=== PATIENT | female | born 1950 | race Caucasian/White ===

== ENCOUNTER 2024-04-29 18:05 | Observation (INO) ==
[2024-04-29 18:20] VITALS: BMI 17.6
--- NOTE | 2024-04-29 18:43 | EKG ---
Test Reason : chest pain Blood Pressure : */* mmHG Vent. Rate : 89 BPM Atrial Rate : * BPM P-R Int : * ms QRS Dur : 110 ms QT Int : 400 ms P-R-T Axes : * 20 103 degrees QTc Int : 486 ms Accelerated Junctional rhythm Anterolateral infarct , age undetermined Abnormal ECG No previous ECGs available Confirmed by Cristhian Arroyo MD ([id number]) on 04/30/2024 7:55:34 AM Referred By: Confirmed By: Cristhian Arroyo MD
--- NOTE | 2024-04-29 18:43 | DR.CP ---
HPI <Beto Breezy - Last Filed: 05/04/24 08:32> Time Seen Time Seen by Provider: 04/29/24 18:41 PCP Primary Care Physician: Luke Wells Chief Complaint Doctor Comments: 74-year-old female presents for evaluation. Awoke yesterday AM, developed chest pain shortly thereafter. Pain located around the left breast region. Has been fairly constant since yesterday. Pain is sharp, does not radiate. Slightly worse with breathing. Nothing makes it better. 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 Denies fever or chills. No nausea, vomiting, diarrhea. No bladder issues. No swelling of her legs, no pain of her legs, no history of DVT. Chief Complaint:: Pain behind left breast that started yesterday at approximately 0900. took tylenol, went to see Sil ISABEL today then she decided to come to E.R. to make sure is not heart related. Self Treatment fo Chief Complaint: took tylenol Reviewed Nurses Notes Review: Yes Source History Provided: Patient Mode of Arrival Mode of Arrival: Ambulatory Timing Onset of Chief Complaint: 04/28/24 PMH <Beto Grotz - Last Filed: 05/04/24 08:32> PMH Past Medical History: Yes Past Medical History: Arthritis, COPD, Headaches and Sleep Apnea Past Medical History Comment: Narcardia, Past Surgical History: Yes Surgical History: Cholecystectomy Past Surgical History Comment: Right breast cyst removed. Family History History of Family Medical Conditions: No Family Medical History: Heart Failure Social History Does patient currently use any type of tobacco product: No Have you used tobacco products in the last 12 months: No Type of Tobacco Use: None Does any household member use tobacco: No Alcohol Use: None Do you use any recreational Drugs:: No Lives With: Alone Lives Where: Home Infectious screening In the last 2 months have you had wt loss of >10#?: NO Have you had fever, night sweats or hemotysis?: No Have you traveled outside the country in the last 6 months?: No Isolation: Standard ROS <Beto Nathancharles - Last Filed: 05/04/24 08:32> Review of Systems Constitutional: No Symptoms Reported Eyes: No Symptoms Reported ENTM: No Symptoms Reported Respiratoy: No Symptoms Reported Cardiovascular: See HPI Gastrointestinal/Abdominal: No Symptoms Reported Genitourinary: No Symptoms Reported Neurological: No Symptoms Reported Musculoskeletal: No Symptoms Reported Integumentary: No Symptoms Reported All Other Systems: Reviewed and Negative <Shannan RichomndanthonyAlireza - Last Filed: 04/30/24 03:44> Review of Systems Hematologic/Lymphatic: No Symptoms Reported Endocrine: No Symptoms Reported Psychiatric: No Symptoms Reported PE <Beto Tijerina - Last Filed: 05/04/24 08:32> Vitals Vitals: Vital Signs Pulse Rate 80 Pulse Rate 77 Pulse Rate 79 Pulse Rate 82 Pulse Rate 83 Pulse Rate 78 Pulse Rate 80 Pulse Rate 84 Pulse Rate 84 Pulse Rate 82 Pulse Rate 79 Pulse Rate 79 Pulse Rate 82 Pulse Rate 82 Pulse Rate 82 Pulse Rate 83 Pulse Rate 83 Pulse Rate 84 Pulse Rate 84 Pulse Rate 81 Pulse Rate 91 Pulse Rate 84 Pulse Rate 83 Pulse Rate 82 Pulse Rate 83 Pulse Rate 82 Pulse Rate 80 Pulse Rate 83 Pulse Rate 81 Pulse Rate 84 Pulse Rate 86 Pulse Rate 85 Pulse Rate 82 Pulse Rate 81 Pulse Rate 80 Pulse Rate 82 Pulse Rate 85 Pulse Rate 83 Pulse Rate 86 Pulse Rate 88 Pulse Rate 85 Pulse Rate 84 Pulse Rate 87 Pulse Rate 83 Pulse Rate 106 Pulse Rate 107 Pulse Rate 116 Pulse Rate 118 Pulse Rate 100 Pulse Rate 93 Pulse Rate 90 Pulse Rate 90 Pulse Rate 94 Pulse Rate 91 Pulse Rate 95 Pulse Rate 100 Pulse Rate 90 Pulse Rate 90 Respiratory Rate 29 Respiratory Rate 20 Respiratory Rate 22 Respiratory Rate 35 Respiratory Rate 26 Respiratory Rate 30 Respiratory Rate 29 Respiratory Rate 26 Respiratory Rate 29 Respiratory Rate 21 Respiratory Rate 25 Respiratory Rate 25 Blood Pressure 174/72 Blood Pressure 166/67 Blood Pressure 159/67 Blood Pressure 160/74 Blood Pressure 189/73 Blood Pressure 160/73 Blood Pressure 166/70 Blood Pressure 166/70 Blood Pressure 164/72 Blood Pressure 164/72 Blood Pressure 164/72 Blood Pressure 161/72 Blood Pressure 161/72 Blood Pressure 156/71 Blood Pressure 157/70 Blood Pressure 161/59 Blood Pressure 162/72 Blood Pressure 169/73 Blood Pressure 172/74 Blood Pressure 173/74 Blood Pressure 156/70 Blood Pressure 146/65 Blood Pressure 166/60 Blood Pressure 146/68 Blood Pressure 157/79 Blood Pressure 181/74 Blood Pressure 165/70 Blood Pressure 156/68 Blood Pressure 178/76 Blood Pressure 164/73 Blood Pressure 159/68 Blood Pressure 155/68 Blood Pressure 149/65 Blood Pressure 152/69 Blood Pressure 158/70 Blood Pressure 133/61 Blood Pressure 154/67 Blood Pressure 172/74 Blood Pressure 155/68 Blood Pressure 171/74 Blood Pressure 152/71 Blood Pressure 201/84 Blood Pressure 180/78 Blood Pressure 197/86 Blood Pressure 185/72 Blood Pressure 147/68 Blood Pressure 147/68 Blood Pressure 180/74 Blood Pressure 162/70 Blood Pressure 178/64 Blood Pressure 168/70 Blood Pressure 160/65 Blood Pressure 160/65 O2 Sat by Pulse Oximetry 98 O2 Sat by Pulse Oximetry 98 O2 Sat by Pulse Oximetry 96 O2 Sat by Pulse Oximetry 97 O2 Sat by Pulse Oximetry 97 O2 Sat by Pulse Oximetry 97 O2 Sat by Pulse Oximetry 97 O2 Sat by Pulse Oximetry 96 O2 Sat by Pulse Oximetry 97 O2 Sat by Pulse Oximetry 98 O2 Sat by Pulse Oximetry 98 O2 Sat by Pulse Oximetry 97 O2 Sat by Pulse Oximetry 98 O2 Sat by Pulse Oximetry 97 O2 Sat by Pulse Oximetry 97 O2 Sat by Pulse Oximetry 97 O2 Sat by Pulse Oximetry 97 O2 Sat by Pulse Oximetry 97 O2 Sat by Pulse Oximetry 97 O2 Sat by Pulse Oximetry 95 O2 Sat by Pulse Oximetry 98 O2 Sat by Pulse Oximetry 97 O2 Sat by Pulse Oximetry 97 O2 Sat by Pulse Oximetry 97 O2 Sat by Pulse Oximetry 98 O2 Sat by Pulse Oximetry 98 O2 Sat by Pulse Oximetry 97 O2 Sat by Pulse Oximetry 98 O2 Sat by Pulse Oximetry 98 O2 Sat by Pulse Oximetry 98 O2 Sat by Pulse Oximetry 98 O2 Sat by Pulse Oximetry 98 O2 Sat by Pulse Oximetry 98 O2 Sat by Pulse Oximetry 98 O2 Sat by Pulse Oximetry 98 O2 Sat by Pulse Oximetry 97 O2 Sat by Pulse Oximetry 98 O2 Sat by Pulse Oximetry 97 O2 Sat by Pulse Oximetry 98 O2 Sat by Pulse Oximetry 97 O2 Sat by Pulse Oximetry 97 O2 Sat by Pulse Oximetry 98 O2 Sat by Pulse Oximetry 98 O2 Sat by Pulse Oximetry 99 O2 Sat by Pulse Oximetry 98 O2 Sat by Pulse Oximetry 99 O2 Sat by Pulse Oximetry 99 O2 Sat by Pulse Oximetry 97 O2 Sat by Pulse Oximetry 99 O2 Sat by Pulse Oximetry 99 O2 Sat by Pulse Oximetry 96 O2 Sat by Pulse Oximetry 93 O2 Sat by Pulse Oximetry 95 O2 Sat by Pulse Oximetry 98 O2 Sat by Pulse Oximetry 98 General General Appearance: Alert and In No Apparent Distress Eyes Eye exam: PERRL and EOMI Chest Chest Inspection: Normal Inspection; negative Tenderness Respiratory Respiratory Exam: Normal Lung Sounds Bilat; negative Accessory Muscle Use or Respiratory Distress Cardiovascular Cardiovascular Exam: Regular Rate, Normal Rhythm and Normal Heart Sounds Abdominal Exam Abdominal Exam: Normal Bowel Sounds and Soft; negative Tenderness Extremities Extremities Exam: Normal Inspection and Full ROM; negative Tenderness or Edema Back Back Exam: Normal Inspection; negative (R) CVA Tenderness or (L) CVA Tenderness Neurologic Neurological Exam: Alert, Oriented X3 and CN II-XII Intact; negative Motor Sensory Deficit Skin Skin Exam: Warm and Dry <Shannan BoydKarenAlireza - Last Filed: 04/30/24 03:44> Vitals Vitals: Vital Signs Pulse Rate 80 Pulse Rate 77 Pulse Rate 79 Pulse Rate 82 Pulse Rate 83 Pulse Rate 78 Pulse Rate 80 Pulse Rate 84 Pulse Rate 84 Pulse Rate 82 Pulse Rate 79 Pulse Rate 79 Pulse Rate 82 Pulse Rate 82 Pulse Rate 82 Pulse Rate 83 Pulse Rate 83 Pulse Rate 84 Pulse Rate 84 Pulse Rate 81 Pulse Rate 91 Pulse Rate 84 Pulse Rate 83 Pulse Rate 82 Pulse Rate 83 Pulse Rate 82 Pulse Rate 80 Pulse Rate 83 Pulse Rate 81 Pulse Rate 84 Pulse Rate 86 Pulse Rate 85 Pulse Rate 82 Pulse Rate 81 Pulse Rate 80 Pulse Rate 82 Pulse Rate 85 Pulse Rate 83 Pulse Rate 86 Pulse Rate 88 Pulse Rate 85 Pulse Rate 84 Pulse Rate 87 Pulse Rate 83 Pulse Rate 106 Pulse Rate 107 Pulse Rate 116 Pulse Rate 118 Pulse Rate 100 Pulse Rate 93 Pulse Rate 90 Pulse Rate 90 Pulse Rate 94 Pulse Rate 91 Pulse Rate 95 Pulse Rate 100 Pulse Rate 90 Pulse Rate 90 Respiratory Rate 29 Respiratory Rate 20 Respiratory Rate 22 Respiratory Rate 35 Respiratory Rate 26 Respiratory Rate 30 Respiratory Rate 29 Respiratory Rate 26 Respiratory Rate 29 Respiratory Rate 21 Respiratory Rate 25 Respiratory Rate 25 Blood Pressure 174/72 Blood Pressure 166/67 Blood Pressure 159/67 Blood Pressure 160/74 Blood Pressure 189/73 Blood Pressure 160/73 Blood Pressure 166/70 Blood Pressure 166/70 Blood Pressure 164/72 Blood Pressure 164/72 Blood Pressure 164/72 Blood Pressure 161/72 Blood Pressure 161/72 Blood Pressure 156/71 Blood Pressure 157/70 Blood Pressure 161/59 Blood Pressure 162/72 Blood Pressure 169/73 Blood Pressure 172/74 Blood Pressure 173/74 Blood Pressure 156/70 Blood Pressure 146/65 Blood Pressure 166/60 Blood Pressure 146/68 Blood Pressure 157/79 Blood Pressure 181/74 Blood Pressure 165/70 Blood Pressure 156/68 Blood Pressure 178/76 Blood Pressure 164/73 Blood Pressure 159/68 Blood Pressure 155/68 Blood Pressure 149/65 Blood Pressure 152/69 Blood Pressure 158/70 Blood Pressure 133/61 Blood Pressure 154/67 Blood Pressure 172/74 Blood Pressure 155/68 Blood Pressure 171/74 Blood Pressure 152/71 Blood Pressure 201/84 Blood Pressure 180/78 Blood Pressure 197/86 Blood Pressure 185/72 Blood Pressure 147/68 Blood Pressure 147/68 Blood Pressure 180/74 Blood Pressure 162/70 Blood Pressure 178/64 Blood Pressure 168/70 Blood Pressure 160/65 Blood Pressure 160/65 O2 Sat by Pulse Oximetry 98 O2 Sat by Pulse Oximetry 98 O2 Sat by Pulse Oximetry 96 O2 Sat by Pulse Oximetry 97 O2 Sat by Pulse Oximetry 97 O2 Sat by Pulse Oximetry 97 O2 Sat by Pulse Oximetry 97 O2 Sat by Pulse Oximetry 96 O2 Sat by Pulse Oximetry 97 O2 Sat by Pulse Oximetry 98 O2 Sat by Pulse Oximetry 98 O2 Sat by Pulse Oximetry 97 O2 Sat by Pulse Oximetry 98 O2 Sat by Pulse Oximetry 97 O2 Sat by Pulse Oximetry 97 O2 Sat by Pulse Oximetry 97 O2 Sat by Pulse Oximetry 97 O2 Sat by Pulse Oximetry 97 O2 Sat by Pulse Oximetry 97 O2 Sat by Pulse Oximetry 95 O2 Sat by Pulse Oximetry 98 O2 Sat by Pulse Oximetry 97 O2 Sat by Pulse Oximetry 97 O2 Sat by Pulse Oximetry 97 O2 Sat by Pulse Oximetry 98 O2 Sat by Pulse Oximetry 98 O2 Sat by Pulse Oximetry 97 O2 Sat by Pulse Oximetry 98 O2 Sat by Pulse Oximetry 98 O2 Sat by Pulse Oximetry 98 O2 Sat by Pulse Oximetry 98 O2 Sat by Pulse Oximetry 98 O2 Sat by Pulse Oximetry 98 O2 Sat by Pulse Oximetry 98 O2 Sat by Pulse Oximetry 98 O2 Sat by Pulse Oximetry 97 O2 Sat by Pulse Oximetry 98 O2 Sat by Pulse Oximetry 97 O2 Sat by Pulse Oximetry 98 O2 Sat by Pulse Oximetry 97 O2 Sat by Pulse Oximetry 97 O2 Sat by Pulse Oximetry 98 O2 Sat by Pulse Oximetry 98 O2 Sat by Pulse Oximetry 99 O2 Sat by Pulse Oximetry 98 O2 Sat by Pulse Oximetry 99 O2 Sat by Pulse Oximetry 99 O2 Sat by Pulse Oximetry 97 O2 Sat by Pulse Oximetry 99 O2 Sat by Pulse Oximetry 99 O2 Sat by Pulse Oximetry 96 O2 Sat by Pulse Oximetry 93 O2 Sat by Pulse Oximetry 95 O2 Sat by Pulse Oximetry 98 O2 Sat by Pulse Oximetry 98 <Shannan BoydAlireza - Last Filed: 04/30/24 03:44> Differential Diagnosis Differential Diagnosis: Angina, Aortic Dissection, Cholelithasis (electrolyte disorder), Myocardial Infarction, Pericarditis, Pancreatitis, Pneumonia and Pulmonary Embolus COURSE <Beto Tijerina - Last Filed: 05/04/24 08:32> Treatment Treatment: 74-year-old female with left-sided chest discomfort since yesterday. Currently no distress. Workup initiated. EKG shows normal sinus rhythm at 89 bpm, axis first-degree, nonspecific ST elevation across the precordial leads. CXR - chronic appearing changes. 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 Troponin normal. Does have a markedly elevated D-dimer 2+. Will pursue a CTA of the chest for further evaluation. <Shannan Alvarezix - Last Filed: 04/30/24 03:44> Treatment Treatment: 74-year-old female with left-sided chest discomfort since yesterday. Currently no distress. Workup initiated. EKG shows normal sinus rhythm at 89 bpm, axis first-degree, nonspecific ST elevation across the precordial leads. CXR - chronic appearing changes. 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 Troponin normal. Does have a markedly elevated D-dimer 2.1. Will pursue a CTA of the chest for further evaluation. A review of Patient's labs and tests revealed: cbc 8.0, D-dimer 2.1, Mg 1.8, Cmp stable, U/A neg. Ekg #1 and Ekg #2 no acute ischemic changes/Trop#1 and Trop#2 wnl. Patient was given MgS04 2g Iv. Her CTA chest revealed: Multilobar Pneumonia ( L Lingula and BLL) and RLL nodule that may be a granuloma or neoplastic lesion.Patient was informed of Both findings. After blood cultures were collected Patient was given Rocephin 2 g iv and azithromycin 500mg iv. 02:[address] Iqbal. He has accepted Patient to [facility] for further evaluation ROR <Beto Tijerina - Last Filed: 05/04/24 08:32> Labs Reviewed 05/03/24 04:30 05/03/24 04:30 Laboratory: 04/29/24 22:35 Blood Blood Culture - Preliminary 04/29/24 22:28 Blood Blood Culture - Preliminary WBC 8.0 X10^3/uL (3.6-10.0) 04/29/24 18:40 RBC 3.97 X10^6/uL (3.5-5.4) 04/29/24 18:40 Hgb 12.0 g/dL (12.0-16.0) 04/29/24 18:40 Hct 36.6 % (36.0-47.0) 04/29/24 18:40 MCV 92.2 fL (80.0-100.0) 04/29/24 18:40 MCH 30.2 pg (27.0-34.0) 04/29/24 18:40 MCHC 32.8 g/dL (33.0-35.0) L 04/29/24 18:40 RDW 12.8 % (11.6-16.5) 04/29/24 18:40 Plt Count 146 X10^3/uL (150.0-450.0) L 04/29/24 18:40 MPV 9.3 fL (7.4-11.0) 04/29/24 18:40 Neut % (Auto) 72.0 % (42.0-75.0) 04/29/24 18:40 Lymph % (Auto) 18.0 % (21.0-51.0) L 04/29/24 18:40 [place] % (Auto) 8.9 % (0.0-13.0) 04/29/24 18:40 Eos % (Auto) 0.6 % (0.9-2.9) L 04/29/24 18:40 Baso % (Auto) 0.5 % (0.2-1.0) 04/29/24 18:40 Neut # (Auto) 5.7 x10^3/uL (2.2-4.8) H 04/29/24 18:40 Lymph # (Auto) 1.4 X10^3/uL (1.3-2.9) 04/29/24 18:40 [place] # (Auto) 0.7 x10^3/uL (0.3-0.8) 04/29/24 18:40 Eos # (Auto) 0.0 x10^3/uL (0.0-0.2) 04/29/24 18:40 Baso # (Auto) 0.0 X10^3/uL (0.0-0.1) 04/29/24 18:40 Absolute Nucleated RBC 0.1 /100WBC 04/29/24 18:40 D-Dimer 2.10 ug/ml (0.0-0.57) H 04/29/24 18:40 Sodium 141 mmol/L (136-145) 04/29/24 18:40 Corrected Sodium TNP 04/29/24 18:40 Potassium 3.9 mmol/L (3.5-5.1) 04/29/24 18:40 Chloride 102 mmol/L (98-107) 04/29/24 18:40 Carbon Dioxide 31.0 mmol/L (21-32) 04/29/24 18:40 BUN 16 mg/dL (7-18) 04/29/24 18:40 Creatinine 0.61 mg/dL (0.55-1.02) 04/29/24 18:40 Est GFR (MDRD) Af Amer > 60 (>60) 04/29/24 18:40 Est GFR (MDRD) Non-Af > 60 (>60) 04/29/24 18:40 Glucose 81 mg/dL (65-99) 04/29/24 18:40 Calcium 8.9 mg/dL (8.5-10.1) 04/29/24 18:40 Corrected Calcium TNP 04/29/24 18:40 Magnesium 1.8 mg/dL (2.0-2.9) L 04/29/24 20:50 Total Bilirubin 0.50 mg/dL (0.2-1.0) 04/29/24 18:40 AST 26 Units/L (15-37) 04/29/24 18:40 ALT 20 Units/L (12-78) 04/29/24 18:40 Alkaline Phosphatase 129 Units/L (46-116) H 04/29/24 18:40 Creatine Kinase 77 Units/L (26-192) 04/29/24 20:50 Troponin I High Sens 12.2 ng/L (4.0-60.0) 04/29/24 20:50 Total Protein 8.2 g/dL (6.4-8.2) 04/29/24 18:40 Albumin 3.9 g/dL (3.4-5.0) 04/29/24 18:40 Globulin 4.3 g/dL (2.5-4.5) 04/29/24 18:40 Albumin/Globulin Ratio 0.9 Ratio (1.1-2.1) L 04/29/24 18:40 Lipase 22 Units/L (16-77) 04/29/24 18:40 Specimen Type Clean catch urine 04/29/24 18:30 Urine Color Pale yellow (YELLOW) 04/29/24 18:30 Urine Appearance Clear (CLEAR) 04/29/24 18:30 Urine pH 7.0 (5.0 - 8.0) 04/29/24 18:30 Ur Specific [place] 1.015 (1.000-1.030) 04/29/24 18:30 Urine Protein Negative (NEGATIVE) 04/29/24 18:30 Urine Glucose (UA) Negative (NEGATIVE) 04/29/24 18:30 Urine Ketones Negative (NEGATIVE) 04/29/24 18:30 Urine Blood Negative (NEGATIVE) 04/29/24 18:30 Urine Nitrite Negative (NEGATIVE) 04/29/24 18:30 Urine Bilirubin Negative (NEGATIVE) 04/29/24 18:30 Urine Urobilinogen Normal (NORMAL) 04/29/24 18:30 Ur Leukocyte Esterase Negative (NEGATIVE) 04/29/24 18:30 <Shannan Ferrell - Last Filed: 04/30/24 03:44> Labs Reviewed Laboratory Results Reviewed?: Yes Laboratory: 04/29/24 22:35 Blood Blood Culture - Preliminary 04/29/24 22:28 Blood Blood Culture - Preliminary WBC 8.0 X10^3/uL (3.6-10.0) 04/29/24 18:40 RBC 3.97 X10^6/uL (3.5-5.4) 04/29/24 18:40 Hgb 12.0 g/dL (12.0-16.0) 04/29/24 18:40 Hct 36.6 % (36.0-47.0) 04/29/24 18:40 MCV 92.2 fL (80.0-100.0) 04/29/24 18:40 MCH 30.2 pg (27.0-34.0) 04/29/24 18:40 MCHC 32.8 g/dL (33.0-35.0) L 04/29/24 18:40 RDW 12.8 % (11.6-16.5) 04/29/24 18:40 Plt Count 146 X10^3/uL (150.0-450.0) L 04/29/24 18:40 MPV 9.3 fL (7.4-11.0) 04/29/24 18:40 Neut % (Auto) 72.0 % (42.0-75.0) 04/29/24 18:40 Lymph % (Auto) 18.0 % (21.0-51.0) L 04/29/24 18:40 [place] % (Auto) 8.9 % (0.0-13.0) 04/29/24 18:40 Eos % (Auto) 0.6 % (0.9-2.9) L 04/29/24 18:40 Baso % (Auto) 0.5 % (0.2-1.0) 04/29/24 18:40 Neut # (Auto) 5.7 x10^3/uL (2.2-4.8) H 04/29/24 18:40 Lymph # (Auto) 1.4 X10^3/uL (1.3-2.9) 04/29/24 18:40 [place] # (Auto) 0.7 x10^3/uL (0.3-0.8) 04/29/24 18:40 Eos # (Auto) 0.0 x10^3/uL (0.0-0.2) 04/29/24 18:40 Baso # (Auto) 0.0 X10^3/uL (0.0-0.1) 04/29/24 18:40 Absolute Nucleated RBC 0.1 /100WBC 04/29/24 18:40 D-Dimer 2.10 ug/ml (0.0-0.57) H 04/29/24 18:40 Sodium 141 mmol/L (136-145) 04/29/24 18:40 Corrected Sodium TNP 04/29/24 18:40 Potassium 3.9 mmol/L (3.5-5.1) 04/29/24 18:40 Chloride 102 mmol/L (98-107) 04/29/24 18:40 Carbon Dioxide 31.0 mmol/L (21-32) 04/29/24 18:40 BUN 16 mg/dL (7-18) 04/29/24 18:40 Creatinine 0.61 mg/dL (0.55-1.02) 04/29/24 18:40 Est GFR (MDRD) Af Amer > 60 (>60) 04/29/24 18:40 Est GFR (MDRD) Non-Af > 60 (>60) 04/29/24 18:40 Glucose 81 mg/dL (65-99) 04/29/24 18:40 Calcium 8.9 mg/dL (8.5-10.1) 04/29/24 18:40 Corrected Calcium TNP 04/29/24 18:40 Magnesium 1.8 mg/dL (2.0-2.9) L 04/29/24 20:50 Total Bilirubin 0.50 mg/dL (0.2-1.0) 04/29/24 18:40 AST 26 Units/L (15-37) 04/29/24 18:40 ALT 20 Units/L (12-78) 04/29/24 18:40 Alkaline Phosphatase 129 Units/L (46-116) H 04/29/24 18:40 Creatine Kinase 77 Units/L (26-192) 04/29/24 20:50 Troponin I High Sens 12.2 ng/L (4.0-60.0) 04/29/24 20:50 Total Protein 8.2 g/dL (6.4-8.2) 04/29/24 18:40 Albumin 3.9 g/dL (3.4-5.0) 04/29/24 18:40 Globulin 4.3 g/dL (2.5-4.5) 04/29/24 18:40 Albumin/Globulin Ratio 0.9 Ratio (1.1-2.1) L 04/29/24 18:40 Lipase 22 Units/L (16-77) 04/29/24 18:40 Specimen Type Clean catch urine 04/29/24 18:30 Urine Color Pale yellow (YELLOW) 04/29/24 18:30 Urine Appearance Clear (CLEAR) 04/29/24 18:30 Urine pH 7.0 (5.0 - 8.0) 04/29/24 18:30 Ur Specific [place] 1.015 (1.000-1.030) 04/29/24 18:30 Urine Protein Negative (NEGATIVE) 04/29/24 18:30 Urine Glucose (UA) Negative (NEGATIVE) 04/29/24 18:30 Urine Ketones Negative (NEGATIVE) 04/29/24 18:30 Urine Blood Negative (NEGATIVE) 04/29/24 18:30 Urine Nitrite Negative (NEGATIVE) 04/29/24 18:30 Urine Bilirubin Negative (NEGATIVE) 04/29/24 18:30 Urine Urobilinogen Normal (NORMAL) 04/29/24 18:30 Ur Leukocyte Esterase Negative (NEGATIVE) 04/29/24 18:30 Opioid <Beto Tijerina - Last Filed: 05/04/24 08:32> Opioid Risk Tool Total: 0 Total Score Risk Category: Low Risk Copyright: Wang GALEAS predicting aberrant behaviors <Shannan Ferrell - Last Filed: 04/30/24 03:44> Opioid Risk Tool Total: 0 Total Score Risk Category: Low Risk Discharge Plan Diagnosis Discharge Problem: Pneumonia, Hypomagnesemia Discharge Plan Patient Disposition: 09 ADMITTED INPATIENT Condition: Stable Prescription drug monitoring program results: PDMP reviewed and no concerns identified Orders to Discharge Patient Discharge Orders: Discharge (Routine); Ordered 05/03/24 Ordered By: Stephanie Rangel
[2024-04-29 19:03] LABS: BASOPHILS % (AUTO) 0.5 % (0.2-1.0); EOSINOPHILS % (AUTO) 0.6 % (0.9-2.9); HEMATOCRIT 36.6 % (36.0-47.0); LYMPHOCYTES # (AUTO) 1.4 X10^3/uL (1.3-2.9); MEAN CORPUSCULAR HEMOGLOBIN 30.2 pg (27.0-34.0); MEAN CORPUSCULAR HGB CONC 32.8 g/dL (33.0-35.0); MEAN CORPUSCULAR VOLUME 92.2 fL (80.0-100.0); MEAN PLATELET VOLUME 9.3 fL (7.4-11.0); MONOCYTES # (AUTO) 0.7 x10^3/uL (0.3-0.8); MONOCYTES % (AUTO) 8.9 % (0.0-13.0); NEUTROPHILS # (AUTO) 5.7 x10^3/uL (2.2-4.8); PLATELET COUNT 146 X10^3/uL (150.0-450.0); RED BLOOD COUNT 3.97 X10^6/uL (3.5-5.4); RED CELL DISTRIBUTION WIDTH 12.8 % (11.6-16.5)
[2024-04-29 19:17] LABS: ALANINE AMINOTRANSFERASE 20 Units/L (12-78); ALBUMIN 3.9 g/dL (3.4-5.0); ALKALINE PHOSPHATASE 129 Units/L (46-116); ASPARTATE AMINO TRANSFERASE 26 Units/L (15-37); BLOOD UREA NITROGEN 16 mg/dL (7-18); CALCIUM 8.9 mg/dL (8.5-10.1); CHLORIDE 102 mmol/L (98-107); CREATININE 0.61 mg/dL (0.55-1.02); GLUCOSE 81 mg/dL (65-99); LIPASE 22 Units/L (16-77); POTASSIUM 3.9 mmol/L (3.5-5.1); SODIUM 141 mmol/L (136-145); TOTAL PROTEIN 8.2 g/dL (6.4-8.2); eGFR NON BLACK RACES > 60 (>60)
[2024-04-29] MEDS: APRESOLINE INJ 20 MG VIAL IVP ONE (19:26)
[2024-04-29 20:26] LABS: BILIRUBIN,URINE NEGATIVE (NEGATIVE); BLOOD/HEMOGLOBIN,URINE NEGATIVE (NEGATIVE); GLUCOSE, URINE NEGATIVE (NEGATIVE); KETONES,URINE NEGATIVE (NEGATIVE); LEUKOCYTE ESTERASE ,URINE NEGATIVE (NEGATIVE); NITRITES,URINE NEGATIVE (NEGATIVE); PROTEIN,URINE NEGATIVE (NEGATIVE); UROBILINOGEN,URINE NORMAL (NORMAL)
[2024-04-29 20:28] LABS: APPEARANCE,URINE CLEAR (CLEAR); COLOR,URINE PALE YELLOW (YELLOW)
--- NOTE | 2024-04-29 20:42 | EKG ---
Test Reason : CHEST PAIN Blood Pressure : */* mmHG Vent. Rate : 89 BPM Atrial Rate : 89 BPM P-R Int : 156 ms QRS Dur : 118 ms QT Int : 420 ms P-R-T Axes : 79 30 101 degrees QTc Int : 511 ms Normal sinus rhythm Left atrial enlargement Anterolateral infarct (cited on or before 29-APR-2024) Prolonged QT Abnormal ECG When compared with ECG of 29-APR-2024 18:39, (Unconfirmed) Sinus rhythm has replaced Junctional rhythm T wave inversion less evident in Anterior leads Confirmed by Cristhian Arroyo MD ([id number]) on 04/30/2024 7:54:50 AM Referred By: Confirmed By: Cristhian Arroyo MD
--- NOTE | 2024-04-29 21:03 | CT ---
EXAM: CTA CHEST WITH INTRAVENOUS CONTRAST HISTORY: Pain behind the left breast that started yesterday. TECHNIQUE: Spiral axial CT images are obtained through the chest with the administration of intraveno us contrast. Coronal, sagittal and 3D MIP images are reformatted. DOSIMETRY: Total DLP 88.72 mGycm; CTDI 15.03 mGy COMPARISON: None available. FINDINGS: CARDIOVASCULAR: There is no evidence for pulmonary embolic disease. The heart size and mediastinal va scular structures are within normal limits. There is no significant aortic or coronary atheroscleros is seen. No thoracic aortic aneurysm or dissection is noted. MEDIASTINUM AND YAYA: No mass lesion, lymphadenopathy, emphysema, or abnormal fluid collection is see n. LUNGS: There is evidence for bronchial wall thickening, endobronchial complex fluid opacification, an d peribronchial 3 and blood parenchymal infiltrate seen within the bilateral lower lobes and lingula consistent with acute multilobar bronchopneumonia in the appropriate clinical setting. There is appr oximately 2.4 cm transverse by 3 cm AP subpleural consolidation in the posterior inferior lingula con sistent with consolidative postobstructive atelectasis and/for acute pneumonia in the appropriate cli nical setting. Axial image 101. There is a nonspecific 8.4 mm noncalcified subpleural nodule in the anterior lateral right lower lobe (axial image 107); DDx includes noncalcified granuloma and neoplas tic nodule. There is biapical subpleural parenchymal fibrosis consistent with chronic sequela of nate or inflammatory or granulomatous lung disease. No pleural effusion or pneumothorax is evident. CHEST WALL: There are no chest wall lesions seen. Multilevel DDD is seen throughout the middle to di stal thoracic spine with disc space narrowings and anterior marginal osteophytosis. The visualized b sondra structures are otherwise within normal limits. No axillary lymphadenopathy is noted. UPPER ABDOMEN: Limited views through the upper abdomen demonstrate no gross acute abnormality. The p atient is status post cholecystectomy. There is mild intrahepatic and extrahepatic biliary ductal dil atation, without discernible obstructing stone or pancreatic head mass lesion, suspicious for postcho lecystectomy state. Consider follow-up MRCP or HIDA scan if obstructive biliary disease is clinicall y suspected. IMPRESSION: 1. No evidence for pulmonary embolic disease. 2. No evidence for aortic aneurysm or aortic dissection. 3. Bronchial wall thickening, endobronchial complex fluid opacification, and peribronchial 3 and blo od parenchymal infiltrate seen within the bilateral lower lobes and lingula consistent with acute mul tilobar bronchopneumonia in the appropriate clinical setting. 4. Approximately 2.4 cm transverse by 3 cm AP subpleural consolidation in the posterior inferior zachery gula consistent with consolidative postobstructive atelectasis and/for acute pneumonia in the appropr iate clinical setting. Axial image 101. 5. Biapical subpleural parenchymal fibrosis consistent with chronic sequela of prior inflammatory or granulomatous lung disease. 6. Nonspecific 8.4 mm noncalcified subpleural nodule in the anterior lateral right lower lobe (axial image 107); DDx includes noncalcified granuloma and neoplastic nodule. 7. For low risk patient, recommend follow-up CT in 12 months, and if stable no further follow-up. Fo r high-risk patient, recommend follow-up CT in no more than 6-12 months, and if stable, consider foll ow-up at 18-24 months. THIS IS AN ELECTRONICALLY VERIFIED FINAL REPORT 04/29/2024 9:00 PM - Electronically signed by Leigh Sanabria MD
[2024-04-29] MEDS: NORMODYNE INJ 20 MG VIAL IVP ONE (21:47)
[2024-04-29] MEDS: ROCEPHIN VIAL 2 GRAMS 2 G in NS 100 ML IV 100 ML IV SCH (22:01)
[2024-04-29] MEDS: ZITHROMAX INJ 500 MG VIAL 500 MG in NS 250 ML IV 250 ML IV SCH (22:04)
[2024-04-30] MEDS: MAGNESIUM SULFATE 1 GRAM/100 mL PREMIX 1 G/100 ML BAG IV SCH (00:49)
[2024-04-30] MEDS: ZOFRAN INJ 4 MG VIAL IVP ONE (02:54)
[2024-04-30] MEDS: MORPHINE SULFATE INJ 2 MG INJ IVP ONE (02:55)
[2024-04-30] MEDS ORDERED: CONSULT PHARMACY - POTASSIUM & MAGNESIUM XX SCH (04:28)
[2024-04-30] MEDS: NEURONTIN CAP 300 MG PO SCH (05:56)
[2024-04-30 06:11] LABS: BASOPHILS % (AUTO) 0.4 % (0.2-1.0); EOSINOPHILS % (AUTO) 0.2 % (0.9-2.9); HEMOGLOBIN 11.5 g/dL (12.0-16.0); LYMPHOCYTES # (AUTO) 1.8 X10^3/uL (1.3-2.9); LYMPHOCYTES % (AUTO) 20.7 % (21.0-51.0); MEAN CORPUSCULAR HEMOGLOBIN 30.4 pg (27.0-34.0); MEAN CORPUSCULAR VOLUME 92.1 fL (80.0-100.0); MEAN PLATELET VOLUME 9.4 fL (7.4-11.0); MONOCYTES # (AUTO) 0.9 x10^3/uL (0.3-0.8); MONOCYTES % (AUTO) 10.8 % (0.0-13.0); NEUTROPHILS # (AUTO) 5.9 x10^3/uL (2.2-4.8); NEUTROPHILS % (AUTO) 67.9 % (42.0-75.0); PLATELET COUNT 131 X10^3/uL (150.0-450.0); WHITE BLOOD COUNT 8.7 X10^3/uL (3.6-10.0)
[2024-04-30 06:23] LABS: ALANINE AMINOTRANSFERASE 18 Units/L (12-78); ALBUMIN 3.4 g/dL (3.4-5.0); ALKALINE PHOSPHATASE 108 Units/L (46-116); ASPARTATE AMINO TRANSFERASE 20 Units/L (15-37); BLOOD UREA NITROGEN 12 mg/dL (7-18); CALCIUM 8.5 mg/dL (8.5-10.1); CARBON DIOXIDE 28.8 mmol/L (21-32); CHLORIDE 101 mmol/L (98-107); CREATININE 0.61 mg/dL (0.55-1.02); GLUCOSE 107 mg/dL (65-99); POTASSIUM 3.5 mmol/L (3.5-5.1); SODIUM 140 mmol/L (136-145); TOTAL PROTEIN 7.5 g/dL (6.4-8.2); eGFR NON BLACK RACES > 60 (>60)
--- NOTE | 2024-04-30 06:54 | RAD ---
EXAM:CHEST, 1 VIEWHISTORY:Pain behind left breast that started yesterday at approximately 0900.;COMPARISON:NoneFINDINGS:The cardiomediastinal silhouette is normal in size.Chronic appearing interstitial changes in the lungs. Scattered bilateral airspace opacities, worst in the left upper lobe. No pneumothorax or effusion.No acute osseous abnormality.IMPRESSION:Scattered bilateral airspace opacities concerning for pneumonia.THIS IS AN ELECTRONICALLY VERIFIED FINAL REPORT04/30/2024 6:50 AM - Electronically signed by Simone Serrano MD
[2024-04-30] MEDS: VITAMIN D3 25 mcg (1,000 UNITS) PO SCH (08:36)
[2024-04-30] MEDS: K-DUR TAB 20 MEQ PO SCH (08:36)
[2024-04-30] MEDS: PULMICORT NEB TX 0.5 MG NEB SCH (08:37)
[2024-04-30] MEDS: TAB-A-VITE PO SCH (08:37)
[2024-04-30] MEDS: DUONEB 0.5 MG/3 MG (3 mL) NEB SCH (08:37)
[2024-04-30] MEDS: SINGULAIR TAB 10 MG PO SCH (08:37)
[2024-04-30] MEDS: VSL#3 PROBIOTIC CAP 112.5 B PO SCH (08:37)
[2024-04-30] MEDS: MAG-OX TAB PO SCH (08:37)
[2024-04-30] MEDS: COSOPT OPTH OP SCH (08:41)
[2024-04-30] MEDS ORDERED: PATIENT'S HOME MEDICATION (Cholecalciferol (Vitamin D3) [Vitamin D3] 50 mcg (2,000 unit) C PO SCH ×2 (09:00)
[2024-04-30] MEDS ORDERED: TUSSIONEX PENNKINETIC SUSP PO PRN (09:32)
[2024-04-30] MEDS: LOVENOX INJ 40 MG SYR SC SCH (11:21)
[2024-04-30] MEDS: SOLU-Medrol 40 MG VIAL IVP SCH (11:21)
[2024-04-30] MEDS: LIPITOR TAB 20 MG PO SCH (20:37)
[2024-04-30] MEDS: LUMIGAN OPHTH AFFEYE SCH (20:38)
[2024-05-01 05:06] LABS: BASOPHILS # (AUTO) 0.2 X10^3/uL (0.0-0.1); EOSINOPHILS % (AUTO) 0.4 % (0.9-2.9); HEMATOCRIT 31.5 % (36.0-47.0); HEMOGLOBIN 10.5 g/dL (12.0-16.0); LYMPHOCYTES % (AUTO) 11.6 % (21.0-51.0); MEAN CORPUSCULAR HEMOGLOBIN 30.6 pg (27.0-34.0); MEAN CORPUSCULAR HGB CONC 33.5 g/dL (33.0-35.0); MEAN CORPUSCULAR VOLUME 91.4 fL (80.0-100.0); MEAN PLATELET VOLUME 9.8 fL (7.4-11.0); MONOCYTES # (AUTO) 0.7 x10^3/uL (0.3-0.8); NEUTROPHILS # (AUTO) 6.5 x10^3/uL (2.2-4.8); PLATELET COUNT 127 X10^3/uL (150.0-450.0); RED BLOOD COUNT 3.44 X10^6/uL (3.5-5.4); RED CELL DISTRIBUTION WIDTH 13.1 % (11.6-16.5); WHITE BLOOD COUNT 8.3 X10^3/uL (3.6-10.0)
[2024-05-01 05:27] LABS: ALANINE AMINOTRANSFERASE 19 Units/L (12-78); ALBUMIN 3.1 g/dL (3.4-5.0); ALKALINE PHOSPHATASE 113 Units/L (46-116); ASPARTATE AMINO TRANSFERASE 29 Units/L (15-37); BLOOD UREA NITROGEN 19 mg/dL (7-18); CALCIUM 8.5 mg/dL (8.5-10.1); CARBON DIOXIDE 27.6 mmol/L (21-32); CHLORIDE 105 mmol/L (98-107); COR CA(FOR HYPOALB) 9.2 mg/dL (8.5-10.1); COR NA(FOR HYPERGLY) 140 mmol/L (136-145); CREATININE 0.48 mg/dL (0.55-1.02); GLUCOSE 114 mg/dL (65-99); SODIUM 140 mmol/L (136-145); TOTAL PROTEIN 6.8 g/dL (6.4-8.2); eGFR NON BLACK RACES > 60 (>60)
--- NOTE | 2024-05-01 10:08 | DR.H&P ---
H&P History & Physical for Day of: H&P Date: 04/30/24 Chief Complaint Chief Complaint: Cough Shortness of breath Chills History of Present Illness History of Present Illness: Patient is a 74-year-old female with a past medical history of COPD, hyperlipidemia, arthritis, presenting with worsening shortness of breath, cough with productive sputum, chest discomfort, for the past few days. She reports also feeling chills. Labs/imaging: WBC 8.7, hemoglobin 11.5, platelets 131, sodium 140, potassium 3.5, creatinine 0.61, glucose 107, D-dimer 2.10, magnesium 1.8, troponin negative x 2, UA negative, AIT pending, blood cultures pending, chest x-ray was obtained that revealed bilateral multilobe pneumonia. CTA of the chest was obtained that revealed no pulmonary embolism but bilateral multilobe pneumonia along with pulmonary nodule noncalcified subpleural nodule in the anterior lateral right lower lobe that will need to be followed up outpatient (sees Pulmonology-Dr Tavarez in [place]). Patient is admitted for bilateral pneumonia, chest pain rule out, COPD exacerbation, hypomagnesemia. Troponin is negative and patient has been responding well to treatments. Patient was started on IV antibiotics Rocephin and azithromycin. Scheduled bronchodilators was ordered. She is currently on 2 L nasal cannula supplemental oxygen. Will wean/titrate as tolerated. Will obtain sputum cultures. Order smart vest. Started on IV Solu-Medrol 40 mg daily. Tussidex twice daily as needed for cough. Will continue to closely monitor and follow-up labs/imaging. Time spent for clinical assessment, reviewing labs/imaging, physical exam, decision making and documentation greater than 45 mins. Past Medical History Past Medical History: Arthritis, COPD, Headaches and Sleep Apnea Past Surgical History Surgical History: Cholecystectomy Family History Family Medical History: Cancer, [place], Coronary Artery Disease, Heart Failure and Hypertension Social History Does patient currently use any type of tobacco product: No Have you used tobacco products in the last 12 months: No Type of Tobacco Use: None Does any household member use tobacco: No Alcohol Use: None Drug Use: None Medications Home Medications: Home Medications Medication Instructions Recorded Confirmed Type Bacillus coagulans 2 billion 1 cap PO DAILY 04/29/24 04/29/24 History cell-calcium 140 mg capsule (Digestive Advantage Probiotic) Ibsolution 2 cap PO DAILY 04/29/24 04/29/24 History Super C With Vit D3 & Zinc 1 tab PO DAILY 04/29/24 04/29/24 History Turmeric Curcumin With Bioprine 3 cap PO DAILY 04/29/24 04/29/24 History atorvastatin 20 mg tablet 20 mg PO QPM 04/29/24 04/29/24 History bimatoprost 0.01 % eye drops 1 drp ophthalmic (eye) QPM 04/29/24 04/29/24 History (Lumigan) cholecalciferol (vitamin D3) 50 50 mcg PO QDAY 04/29/24 04/29/24 History mcg (2,000 unit) capsule (Vitamin D3) cholecalciferol (vitamin D3) 50 50 mcg PO QDAY 04/29/24 04/29/24 History mcg (2,000 unit) capsule (Vitamin D3) dorzolamide 22.3 mg-timolol 6.8 1 drp ophthalmic (eye) BID 04/29/24 04/29/24 History mg/mL eye drops gabapentin 300 mg capsule 300 mg PO TID 04/29/24 04/29/24 History magnesium 250 mg tablet 250 mg PO QDAY 04/29/24 04/29/24 History montelukast 10 mg tablet 10 mg PO QDAY 04/29/24 04/29/24 History moxifloxacin 400 mg tablet 400 mg PO QDAY 04/29/24 04/29/24 History multivitamin with minerals-folic 1 tab PO DAILY 04/29/24 04/29/24 History acid 200 mcg chewable tablet (Multivitamin Gummies) Allergies Allergies Allergy/AdvReac Type Severity Reaction Status Date / Time Sulfa (Sulfonamide Allergy Verified 04/29/24 18:34 Antibiotics) [SULFA] Labs 05/01/24 04:10 05/01/24 04:10 Labs: Laboratory WBC 8.3 X10^3/uL (3.6-10.0) 05/01/24 04:10 RBC 3.44 X10^6/uL (3.5-5.4) L 05/01/24 04:10 Hgb 10.5 g/dL (12.0-16.0) L 05/01/24 04:10 Hct 31.5 % (36.0-47.0) L 05/01/24 04:10 MCV 91.4 fL (80.0-100.0) 05/01/24 04:10 MCH 30.6 pg (27.0-34.0) 05/01/24 04:10 MCHC 33.5 g/dL (33.0-35.0) 05/01/24 04:10 RDW 13.1 % (11.6-16.5) 05/01/24 04:10 Plt Count 127 X10^3/uL (150.0-450.0) L 05/01/24 04:10 MPV 9.8 fL (7.4-11.0) 05/01/24 04:10 Neut % (Auto) 78.0 % (42.0-75.0) H 05/01/24 04:10 Lymph % (Auto) 11.6 % (21.0-51.0) L 05/01/24 04:10 [place] % (Auto) 8.0 % (0.0-13.0) 05/01/24 04:10 Eos % (Auto) 0.4 % (0.9-2.9) L 05/01/24 04:10 Baso % (Auto) 2.0 % (0.2-1.0) H 05/01/24 04:10 Neut # (Auto) 6.5 x10^3/uL (2.2-4.8) H 05/01/24 04:10 Lymph # (Auto) 1.0 X10^3/uL (1.3-2.9) L 05/01/24 04:10 [place] # (Auto) 0.7 x10^3/uL (0.3-0.8) 05/01/24 04:10 Eos # (Auto) 0.0 x10^3/uL (0.0-0.2) 05/01/24 04:10 Baso # (Auto) 0.2 X10^3/uL (0.0-0.1) H 05/01/24 04:10 Absolute Nucleated RBC 0.0 /100WBC 05/01/24 04:10 D-Dimer 2.10 ug/ml (0.0-0.57) H 04/29/24 18:40 Sodium 140 mmol/L (136-145) 05/01/24 04:10 Corrected Sodium 140 mmol/L (136-145) 05/01/24 04:10 Potassium 4.0 mmol/L (3.5-5.1) 05/01/24 04:10 Chloride 105 mmol/L (98-107) 05/01/24 04:10 Carbon Dioxide 27.6 mmol/L (21-32) 05/01/24 04:10 BUN 19 mg/dL (7-18) H 05/01/24 04:10 Creatinine 0.48 mg/dL (0.55-1.02) L 05/01/24 04:10 Est GFR (MDRD) Af Amer > 60 (>60) 05/01/24 04:10 Est GFR (MDRD) Non-Af > 60 (>60) 05/01/24 04:10 Glucose 114 mg/dL (65-99) H 05/01/24 04:10 Calcium 8.5 mg/dL (8.5-10.1) 05/01/24 04:10 Corrected Calcium 9.2 mg/dL (8.5-10.1) 05/01/24 04:10 Magnesium 2.1 mg/dL (2.0-2.9) 05/01/24 09:25 Total Bilirubin 0.40 mg/dL (0.2-1.0) 05/01/24 04:10 AST 29 Units/L (15-37) 05/01/24 04:10 ALT 19 Units/L (12-78) 05/01/24 04:10 Alkaline Phosphatase 113 Units/L (46-116) 05/01/24 04:10 Creatine Kinase 77 Units/L (26-192) 04/29/24 20:50 Troponin I High Sens 12.2 ng/L (4.0-60.0) 04/29/24 20:50 Total Protein 6.8 g/dL (6.4-8.2) 05/01/24 04:10 Albumin 3.1 g/dL (3.4-5.0) L 05/01/24 04:10 Globulin 3.7 g/dL (2.5-4.5) 05/01/24 04:10 Albumin/Globulin Ratio 0.8 Ratio (1.1-2.1) L 05/01/24 04:10 Lipase 22 Units/L (16-77) 04/29/24 18:40 Specimen Type Clean catch urine 04/29/24 18:30 Urine Color Pale yellow (YELLOW) 04/29/24 18:30 Urine Appearance Clear (CLEAR) 04/29/24 18:30 Urine pH 7.0 (5.0 - 8.0) 04/29/24 18:30 Ur Specific [place] 1.015 (1.000-1.030) 04/29/24 18:30 Urine Protein Negative (NEGATIVE) 04/29/24 18:30 Urine Glucose (UA) Negative (NEGATIVE) 04/29/24 18:30 Urine Ketones Negative (NEGATIVE) 04/29/24 18:30 Urine Blood Negative (NEGATIVE) 04/29/24 18:30 Urine Nitrite Negative (NEGATIVE) 04/29/24 18:30 Urine Bilirubin Negative (NEGATIVE) 04/29/24 18:30 Urine Urobilinogen Normal (NORMAL) 04/29/24 18:30 Ur Leukocyte Esterase Negative (NEGATIVE) 04/29/24 18:30 Review of Systems Constitutional: Chills and Weakness Eyes: No Symptoms Reported ENT: No Symptoms Reported Respiratory: Cough, Shortness of Breath, Sputum and Wheezing Cardiovascular: No Symptoms Reported Gastrointestinal: No Symptoms Reported Genitourinary: No Symptoms Reported Musculoskeletal: No Symptoms Reported Skin: No Symptoms Reported Neurological: No Symptoms Reported Physical Exam Vital Signs: Vital Signs Temperature 97.6 F Temperature 98.1 F Pulse Rate [Left Brachial] 78 Pulse Rate [Left Brachial] 78 Pulse Rate 75 Respiratory Rate 20 Respiratory Rate 21 Blood Pressure [Left Arm] 140/63 Blood Pressure [Right Arm] 114/62 O2 Sat by Pulse Oximetry 98 O2 Sat by Pulse Oximetry 99 O2 Sat by Pulse Oximetry 96 Oriented: Normal Eyes: Normal Ear: Normal Nose: Normal Throat: Normal Respiratory: Diminished Throughout and Rhonchi Throughout Cardiovascular: Normal : Normal Auscultation: Bowel Sounds: Normal Palpation: Normal Tenderness: Normal Skin: Normal Musculoskeletal: Normal Psychiatric: Normal Mood Description: Calm and Appropriate Affect: Normal Speech Pattern: Clear and Appropriate Assessment/Plan (1) Bilateral pneumonia: Status: Acute Plan: IV antibiotics Culture pending (2) COPD exacerbation: Status: Acute Plan: IV Solumedrol Scheduled bronchodilators (3) Hypomagnesemia: Status: Acute Plan: Replete per protocol (4) Chest pain, rule out acute myocardial infarction: Status: Acute Plan: Troponin negative x 2 Review H&P Reviewed: Yes Patient was examined?: Yes
--- NOTE | 2024-05-01 10:14 | PCM.PROG ---
Progress Note Progress Note for Day of Date of Exam: 05/01/24 Subjective Subjective: Patient is a 74-year-old female with a past medical history of COPD, hyperlipidemia, arthritis, admitted for bilateral pneumonia, chest pain rule out, COPD exacerbation, hypomagnesemia. This morning she reports some improvement in her symptoms and breathing. No acute events overnight. Labs/i maging: WBC 8.3, hemoglobin 10.5, platelets 127, sodium 140, potassium 4.0, creatinine 0.48, glucose 114, AIT/sputum culture pending, blood cultures pending, chest x-ray was obtained that revealed bilateral multilobe pneumonia. CTA of the chest was obtained that revealed no pulmonary embolism but bilateral multilobe pneumonia along with pulmonary nodule noncalcified subpleural nodule in the anterior lateral right lower lobe that will need to be followed up outpatient (sees Pulmonology-Dr Tavarez in [place]). Patient is currently receiving IV antibiotics Rocephin and azithromycin. Scheduled bronchodilators was ordered. She is currently requiring 2 L nasal cannula supplemental oxygen. Will wean/titrate as tolerated. Smart vest. IV Solu-Medrol 40 mg daily. Tussionex twice daily as needed for cough. Otherwise, continue with current treatment plan. Continue to closely monitor and follow-up labs/imaging. Time spent for clinical assessment, reviewing labs/imaging, physical exam, decision making and documentation greater than 45 mins. Past Medical Family Social History Allergies: Allergies Sulfa (Sulfonamide Antibiotics) [SULFA] Allergy (Verified 04/29/24 18:34) Review of Systems ROS changes noted: see HPI Vital Signs and I&O's Vital Signs: Vital Signs Temperature 97.6 F Temperature 98.1 F Pulse Rate [Left Brachial] 78 Pulse Rate [Left Brachial] 78 Pulse Rate 75 Respiratory Rate 20 Respiratory Rate 21 Blood Pressure [Left Arm] 140/63 Blood Pressure [Right Arm] 114/62 O2 Sat by Pulse Oximetry 98 O2 Sat by Pulse Oximetry 99 O2 Sat by Pulse Oximetry 96 Intake and Output: Intake & Output 04/28/24 04/29/24 04/30/24 05/01/24 23:59 23:59 23:59 23:59 Intake Total 1610 / 1610 120 / 120 Balance 1610 / 1610 120 / 120 Physical Exam Oriented: Normal Eyes: Normal Ear: Normal Nose: Normal Throat: Normal Respiratory: Diminished and Rhonchi Cardiovascular: Normal : Normal Auscultation: Bowel Sounds: Normal Tenderness: Normal Skin: Normal Musculoskeletal: Normal Psychiatric: Normal Mood Description: Calm and Appropriate Affect: Normal Speech Pattern: Clear and Appropriate Laboratory and Diagnostics 05/01/24 04:10 05/01/24 04:10 Labs: Laboratory WBC 8.3 X10^3/uL (3.6-10.0) 05/01/24 04:10 RBC 3.44 X10^6/uL (3.5-5.4) L 05/01/24 04:10 Hgb 10.5 g/dL (12.0-16.0) L 05/01/24 04:10 Hct 31.5 % (36.0-47.0) L 05/01/24 04:10 MCV 91.4 fL (80.0-100.0) 05/01/24 04:10 MCH 30.6 pg (27.0-34.0) 05/01/24 04:10 MCHC 33.5 g/dL (33.0-35.0) 05/01/24 04:10 RDW 13.1 % (11.6-16.5) 05/01/24 04:10 Plt Count 127 X10^3/uL (150.0-450.0) L 05/01/24 04:10 MPV 9.8 fL (7.4-11.0) 05/01/24 04:10 Neut % (Auto) 78.0 % (42.0-75.0) H 05/01/24 04:10 Lymph % (Auto) 11.6 % (21.0-51.0) L 05/01/24 04:10 [place] % (Auto) 8.0 % (0.0-13.0) 05/01/24 04:10 Eos % (Auto) 0.4 % (0.9-2.9) L 05/01/24 04:10 Baso % (Auto) 2.0 % (0.2-1.0) H 05/01/24 04:10 Neut # (Auto) 6.5 x10^3/uL (2.2-4.8) H 05/01/24 04:10 Lymph # (Auto) 1.0 X10^3/uL (1.3-2.9) L 05/01/24 04:10 [place] # (Auto) 0.7 x10^3/uL (0.3-0.8) 05/01/24 04:10 Eos # (Auto) 0.0 x10^3/uL (0.0-0.2) 05/01/24 04:10 Baso # (Auto) 0.2 X10^3/uL (0.0-0.1) H 05/01/24 04:10 Absolute Nucleated RBC 0.0 /100WBC 05/01/24 04:10 D-Dimer 2.10 ug/ml (0.0-0.57) H 04/29/24 18:40 Sodium 140 mmol/L (136-145) 05/01/24 04:10 Corrected Sodium 140 mmol/L (136-145) 05/01/24 04:10 Potassium 4.0 mmol/L (3.5-5.1) 05/01/24 04:10 Chloride 105 mmol/L (98-107) 05/01/24 04:10 Carbon Dioxide 27.6 mmol/L (21-32) 05/01/24 04:10 BUN 19 mg/dL (7-18) H 05/01/24 04:10 Creatinine 0.48 mg/dL (0.55-1.02) L 05/01/24 04:10 Est GFR (MDRD) Af Amer > 60 (>60) 05/01/24 04:10 Est GFR (MDRD) Non-Af > 60 (>60) 05/01/24 04:10 Glucose 114 mg/dL (65-99) H 05/01/24 04:10 Calcium 8.5 mg/dL (8.5-10.1) 05/01/24 04:10 Corrected Calcium 9.2 mg/dL (8.5-10.1) 05/01/24 04:10 Magnesium 2.1 mg/dL (2.0-2.9) 05/01/24 09:25 Total Bilirubin 0.40 mg/dL (0.2-1.0) 05/01/24 04:10 AST 29 Units/L (15-37) 05/01/24 04:10 ALT 19 Units/L (12-78) 05/01/24 04:10 Alkaline Phosphatase 113 Units/L (46-116) 05/01/24 04:10 Creatine Kinase 77 Units/L (26-192) 04/29/24 20:50 Troponin I High Sens 12.2 ng/L (4.0-60.0) 04/29/24 20:50 Total Protein 6.8 g/dL (6.4-8.2) 05/01/24 04:10 Albumin 3.1 g/dL (3.4-5.0) L 05/01/24 04:10 Globulin 3.7 g/dL (2.5-4.5) 05/01/24 04:10 Albumin/Globulin Ratio 0.8 Ratio (1.1-2.1) L 05/01/24 04:10 Lipase 22 Units/L (16-77) 04/29/24 18:40 Specimen Type Clean catch urine 04/29/24 18:30 Urine Color Pale yellow (YELLOW) 04/29/24 18:30 Urine Appearance Clear (CLEAR) 04/29/24 18:30 Urine pH 7.0 (5.0 - 8.0) 04/29/24 18:30 Ur Specific [place] 1.015 (1.000-1.030) 04/29/24 18:30 Urine Protein Negative (NEGATIVE) 04/29/24 18:30 Urine Glucose (UA) Negative (NEGATIVE) 04/29/24 18:30 Urine Ketones Negative (NEGATIVE) 04/29/24 18:30 Urine Blood Negative (NEGATIVE) 04/29/24 18:30 Urine Nitrite Negative (NEGATIVE) 04/29/24 18:30 Urine Bilirubin Negative (NEGATIVE) 04/29/24 18:30 Urine Urobilinogen Normal (NORMAL) 04/29/24 18:30 Ur Leukocyte Esterase Negative (NEGATIVE) 04/29/24 18:30 Plan (1) Bilateral pneumonia: Status: Acute Plan: IV antibiotics Culture pending (2) COPD exacerbation: Status: Acute Plan: IV Solumedrol Scheduled bronchodilators (3) Hypomagnesemia: Status: Acute Plan: Replete per protocol (4) Chest pain, rule out acute myocardial infarction: Status: Acute Plan: Troponin negative x 2 (5) Pulmonary nodule: Status: Acute Plan: Follow up outpatient with pulmonology-Dr Tavarez
[2024-05-01] MEDS: TUSSIONEX PENNKINETIC SUSP PO SCH (10:55)
[2024-05-02 03:51] VITALS: RESP 18
[2024-05-02] MEDS: NS 250 ML IV 250 ML IV PRN (05:13)
[2024-05-02 05:31] LABS: BASOPHILS # (AUTO) 0.1 X10^3/uL (0.0-0.1); BASOPHILS % (AUTO) 0.8 % (0.2-1.0); EOSINOPHILS % (AUTO) 0.1 % (0.9-2.9); HEMATOCRIT 30.5 % (36.0-47.0); LYMPHOCYTES # (AUTO) 1.7 X10^3/uL (1.3-2.9); MEAN CORPUSCULAR HEMOGLOBIN 30.3 pg (27.0-34.0); MEAN CORPUSCULAR HGB CONC 32.9 g/dL (33.0-35.0); MEAN PLATELET VOLUME 9.3 fL (7.4-11.0); MONOCYTES # (AUTO) 0.5 x10^3/uL (0.3-0.8); MONOCYTES % (AUTO) 7.3 % (0.0-13.0); NEUTROPHILS # (AUTO) 5.2 x10^3/uL (2.2-4.8); NEUTROPHILS % (AUTO) 68.8 % (42.0-75.0); PLATELET COUNT 121 X10^3/uL (150.0-450.0); RED BLOOD COUNT 3.32 X10^6/uL (3.5-5.4); RED CELL DISTRIBUTION WIDTH 13.2 % (11.6-16.5); WHITE BLOOD COUNT 7.5 X10^3/uL (3.6-10.0)
[2024-05-02 05:45] LABS: ALANINE AMINOTRANSFERASE 18 Units/L (12-78); ALKALINE PHOSPHATASE 95 Units/L (46-116); ASPARTATE AMINO TRANSFERASE 19 Units/L (15-37); BLOOD UREA NITROGEN 15 mg/dL (7-18); CALCIUM 8.4 mg/dL (8.5-10.1); CARBON DIOXIDE 30.7 mmol/L (21-32); CHLORIDE 105 mmol/L (98-107); COR CA(FOR HYPOALB) 9.2 mg/dL (8.5-10.1); GLUCOSE 95 mg/dL (65-99); POTASSIUM 4.1 mmol/L (3.5-5.1); SODIUM 140 mmol/L (136-145); TOTAL PROTEIN 6.4 g/dL (6.4-8.2); eGFR NON BLACK RACES > 60 (>60)
[2024-05-02] MEDS: MILK OF MAGNESIA PO SCH (11:08)
--- NOTE | 2024-05-02 11:14 | PCM.PROG ---
Progress Note Progress Note for Day of Date of Exam: 05/02/24 Subjective Subjective: Patient is a 74-year-old female with a past medical history of COPD, hyperlipidemia, arthritis, admitted for bilateral pneumonia, chest pain rule out, COPD exacerbation, hypomagnesemia. This morning she continues to improve in her breathing. No acute events overnight. Labs/imaging: WBC 7.5, hemoglobin 10, platelets 121, sodium 140, potassium 4.1, creatinine 0.50, glucose 95, AIT culture negative, blood cultures no growth to date, chest x-ray radiology read is pending. CTA of the chest was obtained that revealed no pulmonary embolism but bilateral multilobe pneumonia along with pulmonary nodule noncalcified subpleural nodule in the anterior lateral right lower lobe that will need to be followed up outpatient (sees Pulmonology-Dr Tavarez in [place]). Patient is currently receiving IV antibiotics Rocephin and azithromycin. Scheduled bronchodilators was ordered. She is currently requiring 2 L nasal cannula supplemental oxygen. Will wean/titrate as tolerated. Smart vest. IV Solu-Medrol 40 mg daily. Tussionex twice daily as needed for cough. Otherwise, continue with current treatment plan. Continue to closely monitor and follow-up labs/imaging. Past Medical Family Social History Allergies: Allergies Sulfa (Sulfonamide Antibiotics) [SULFA] Allergy (Verified 04/29/24 18:34) Review of Systems ROS changes noted: see HPI Vital Signs and I&O's Vital Signs: Vital Signs Temperature 97.5 F Temperature 98.2 F Pulse Rate [Left Brachial] 67 Pulse Rate [Left Brachial] 70 Pulse Rate 78 Respiratory Rate 18 Respiratory Rate 18 Blood Pressure [Left Arm] 162/67 Blood Pressure [Left Arm] 138/64 O2 Sat by Pulse Oximetry 98 O2 Sat by Pulse Oximetry 99 O2 Sat by Pulse Oximetry 99 Intake and Output: Intake & Output 04/29/24 04/30/24 05/01/24 05/02/24 23:59 23:59 23:59 23:59 Intake Total 1610 / 1610 1090 / 1090 120 / 120 Balance 1610 / 1610 1090 / 1090 120 / 120 Physical Exam Oriented: Normal Eyes: Normal Ear: Normal Nose: Normal Throat: Normal Respiratory: Diminished Cardiovascular: Normal : Normal Auscultation: Bowel Sounds: Normal Tenderness: Normal Skin: Normal Musculoskeletal: Normal Psychiatric: Normal Mood Description: Calm and Appropriate Affect: Normal Speech Pattern: Clear and Appropriate Laboratory and Diagnostics 05/02/24 04:50 05/02/24 04:50 Labs: 04/29/24 22:35 Blood Blood Culture - Preliminary 04/29/24 22:28 Blood Blood Culture - Preliminary Laboratory WBC 7.5 X10^3/uL (3.6-10.0) 05/02/24 04:50 RBC 3.32 X10^6/uL (3.5-5.4) L 05/02/24 04:50 Hgb 10.0 g/dL (12.0-16.0) L 05/02/24 04:50 Hct 30.5 % (36.0-47.0) L 05/02/24 04:50 MCV 92.0 fL (80.0-100.0) 05/02/24 04:50 MCH 30.3 pg (27.0-34.0) 05/02/24 04:50 MCHC 32.9 g/dL (33.0-35.0) L 05/02/24 04:50 RDW 13.2 % (11.6-16.5) 05/02/24 04:50 Plt Count 121 X10^3/uL (150.0-450.0) L 05/02/24 04:50 MPV 9.3 fL (7.4-11.0) 05/02/24 04:50 Neut % (Auto) 68.8 % (42.0-75.0) 05/02/24 04:50 Lymph % (Auto) 23.0 % (21.0-51.0) 05/02/24 04:50 [place] % (Auto) 7.3 % (0.0-13.0) 05/02/24 04:50 Eos % (Auto) 0.1 % (0.9-2.9) L 05/02/24 04:50 Baso % (Auto) 0.8 % (0.2-1.0) 05/02/24 04:50 Neut # (Auto) 5.2 x10^3/uL (2.2-4.8) H 05/02/24 04:50 Lymph # (Auto) 1.7 X10^3/uL (1.3-2.9) 05/02/24 04:50 [place] # (Auto) 0.5 x10^3/uL (0.3-0.8) 05/02/24 04:50 Eos # (Auto) 0.0 x10^3/uL (0.0-0.2) 05/02/24 04:50 Baso # (Auto) 0.1 X10^3/uL (0.0-0.1) 05/02/24 04:50 Absolute Nucleated RBC 0.0 /100WBC 05/02/24 04:50 D-Dimer 2.10 ug/ml (0.0-0.57) H 04/29/24 18:40 Sodium 140 mmol/L (136-145) 05/02/24 04:50 Corrected Sodium TNP 05/02/24 04:50 Potassium 4.1 mmol/L (3.5-5.1) 05/02/24 04:50 Chloride 105 mmol/L (98-107) 05/02/24 04:50 Carbon Dioxide 30.7 mmol/L (21-32) 05/02/24 04:50 BUN 15 mg/dL (7-18) 05/02/24 04:50 Creatinine 0.50 mg/dL (0.55-1.02) L 05/02/24 04:50 Est GFR (MDRD) Af Amer > 60 (>60) 05/02/24 04:50 Est GFR (MDRD) Non-Af > 60 (>60) 05/02/24 04:50 Glucose 95 mg/dL (65-99) 05/02/24 04:50 Calcium 8.4 mg/dL (8.5-10.1) L 05/02/24 04:50 Corrected Calcium 9.2 mg/dL (8.5-10.1) 05/02/24 04:50 Magnesium 2.1 mg/dL (2.0-2.9) 05/01/24 09:25 Total Bilirubin 0.30 mg/dL (0.2-1.0) 05/02/24 04:50 AST 19 Units/L (15-37) 05/02/24 04:50 ALT 18 Units/L (12-78) 05/02/24 04:50 Alkaline Phosphatase 95 Units/L (46-116) 05/02/24 04:50 Creatine Kinase 77 Units/L (26-192) 04/29/24 20:50 Troponin I High Sens 12.2 ng/L (4.0-60.0) 04/29/24 20:50 Total Protein 6.4 g/dL (6.4-8.2) 05/02/24 04:50 Albumin 3.0 g/dL (3.4-5.0) L 05/02/24 04:50 Globulin 3.4 g/dL (2.5-4.5) 05/02/24 04:50 Albumin/Globulin Ratio 0.9 Ratio (1.1-2.1) L 05/02/24 04:50 Lipase 22 Units/L (16-77) 04/29/24 18:40 Specimen Type Clean catch urine 04/29/24 18:30 Urine Color Pale yellow (YELLOW) 04/29/24 18:30 Urine Appearance Clear (CLEAR) 04/29/24 18:30 Urine pH 7.0 (5.0 - 8.0) 04/29/24 18:30 Ur Specific [place] 1.015 (1.000-1.030) 04/29/24 18:30 Urine Protein Negative (NEGATIVE) 04/29/24 18:30 Urine Glucose (UA) Negative (NEGATIVE) 04/29/24 18:30 Urine Ketones Negative (NEGATIVE) 04/29/24 18:30 Urine Blood Negative (NEGATIVE) 04/29/24 18:30 Urine Nitrite Negative (NEGATIVE) 04/29/24 18:30 Urine Bilirubin Negative (NEGATIVE) 04/29/24 18:30 Urine Urobilinogen Normal (NORMAL) 04/29/24 18:30 Ur Leukocyte Esterase Negative (NEGATIVE) 04/29/24 18:30 Plan (1) Bilateral pneumonia: Status: Acute Plan: IV antibiotics Culture negative (2) COPD exacerbation: Status: Acute Plan: IV Solumedrol Scheduled bronchodilators (3) Hypomagnesemia: Status: Acute Plan: Replete per protocol (4) Chest pain, rule out acute myocardial infarction: Status: Acute Plan: Troponin negative x 2 (5) Pulmonary nodule: Status: Acute Plan: Follow up outpatient with pulmonology-Dr Tavarez
[2024-05-02] MEDS: COLACE CAP 100 MG PO SCH (21:04)
[2024-05-03 05:12] VITALS: O2SAT 97
[2024-05-03 05:22] LABS: BASOPHILS % (AUTO) 0.3 % (0.2-1.0); EOSINOPHILS % (AUTO) 0.1 % (0.9-2.9); HEMATOCRIT 32.1 % (36.0-47.0); HEMOGLOBIN 10.7 g/dL (12.0-16.0); LYMPHOCYTES # (AUTO) 1.9 X10^3/uL (1.3-2.9); LYMPHOCYTES % (AUTO) 26.4 % (21.0-51.0); MEAN CORPUSCULAR HEMOGLOBIN 30.5 pg (27.0-34.0); MEAN CORPUSCULAR HGB CONC 33.2 g/dL (33.0-35.0); MEAN CORPUSCULAR VOLUME 91.8 fL (80.0-100.0); MEAN PLATELET VOLUME 9.8 fL (7.4-11.0); MONOCYTES # (AUTO) 0.6 x10^3/uL (0.3-0.8); MONOCYTES % (AUTO) 8.3 % (0.0-13.0); NEUTROPHILS # (AUTO) 4.7 x10^3/uL (2.2-4.8); NEUTROPHILS % (AUTO) 64.9 % (42.0-75.0); PLATELET COUNT 129 X10^3/uL (150.0-450.0); RED BLOOD COUNT 3.49 X10^6/uL (3.5-5.4); RED CELL DISTRIBUTION WIDTH 13.2 % (11.6-16.5); WHITE BLOOD COUNT 7.3 X10^3/uL (3.6-10.0)
[2024-05-03 05:35] LABS: ALANINE AMINOTRANSFERASE 19 Units/L (12-78); ALKALINE PHOSPHATASE 97 Units/L (46-116); ASPARTATE AMINO TRANSFERASE 17 Units/L (15-37); BLOOD UREA NITROGEN 19 mg/dL (7-18); CALCIUM 8.4 mg/dL (8.5-10.1); CARBON DIOXIDE 33.4 mmol/L (21-32); CHLORIDE 102 mmol/L (98-107); COR CA(FOR HYPOALB) 9.2 mg/dL (8.5-10.1); CREATININE 0.53 mg/dL (0.55-1.02); GLUCOSE 101 mg/dL (65-99); POTASSIUM 4.1 mmol/L (3.5-5.1); SODIUM 136 mmol/L (136-145); TOTAL PROTEIN 6.5 g/dL (6.4-8.2); eGFR NON BLACK RACES > 60 (>60)
--- NOTE | 2024-05-03 08:20 | RAD ---
EXAM:CHEST, 1 VIEWHISTORY:Pneumonia;COMPARISON: [id number]:The lungs are hyperinflated. Small patchy areas of abnormal opacity are seen in the left infrahilar region and the right lung base. This is consistent with the pneumonia seen on 04/29/2024 CTA chest.Minimal improvement on the left side but slight progression on the right side.No significant pleural effusion or pneumothorax.Cardiomegaly is present.The bones are unremarkable.IMPRESSION:1. Bilateral pneumoniaTHIS IS AN ELECTRONICALLY VERIFIED FINAL REPORT05/03/2024 8:17 AM - Electronically signed by Christophe Blum MD
[2024-05-03 10:08] VITALS: BP 146/67; PULSE 67; TEMP 97.5
== END 2024-05-03 15:05 | disposition home or self-care (01) ==
LOC: ER 18:05 → MED/SURG 18:05
PROVIDERS: ADMIT Family Medicine; ATTEND Internal Medicine
DX: J44.1 Chronic obstructive pulmonary disease with (acute) exacerbation; J18.8 Other pneumonia, unspecified organism; E83.42 Hypomagnesemia; R06.02 Shortness of breath; R07.89 Other chest pain; R91.1 Solitary pulmonary nodule; R94.31 Abnormal electrocardiogram [ECG] [EKG]; N64.4 Mastodynia